=== PATIENT | male | born 1960 | race Caucasian/White ===

== ENCOUNTER 2019-06-01 10:37 | Emergency (ER) | payer BC, OTHER ==
[~2019-06-01] VITALS: Ht 175.3 cm; Wt 68.0 kg
[2019-06-01 10:38] VITALS: BP 167/70
--- NOTE | 2019-06-01 11:55 | Emergency Room Report ---
History of Present Illness General Chief Complaint: Vertigo Source: Patient Present Illness HPI Patient is a 58-year-old male who presented after increased vertigo sensation. He reports having difficulty walking. He said onset of symptoms was approximately 30 minutes prior to arrival. Sudden onset. Denies any prior history of vertigo in the past. Denies any ear fullness. Vertigo is worse with right lateral gaze. Had not been having any weakness to his extremities. Reports having near fall without any feeling of lightheadedness. Denies any chest discomfort or shortness of breath. He had some nausea and vomiting. COVID-19 risk:Travel to affect: No Has patient experienced julian: No Allergies: Coded Allergies: No Known Allergies (Unverified , 06/01/19) Patient History Reviewed Nursing Documentation: PMH: Agreed; PSxH: Agreed Review of Systems All Other Systems: negative except mentioned in HPI Physical Exam Vital Signs Date Time Temp Pulse Resp B/P (MAP) Pulse Ox O2 Delivery O2 Flow Rate FiO2 06/01/19 10:33 98.2 83 18 167/70 (102) 96 Room Air Sp02 EP Interpretation: reviewed, normal General Appearance: normal inspection, well appearing, no apparent distress, alert Head: atraumatic ENT: normal ENT inspection, hearing grossly normal, normal voice Neck: normal inspection, full range of motion, supple, no bony tend Respiratory: normal inspection, lungs clear, normal breath sounds, no respiratory distress, no retraction, no wheezing Cardiovascular #1: regular rate, rhythm, no edema Gastrointestinal: normal inspection, normal bowel sounds, non tender, soft, no guarding, no hernia Genitourinary: no CVA tenderness Musculoskeletal: normal inspection, back normal, normal range of motion Neurologic: alert, responsive, speech normal, normal inspection Psychiatric: normal inspection, judgement/insight normal, mood/affect normal Medical Decision Making Diagnostic Impression: Primary Impression: Vertigo Additional Impression: Hypokalemia ER Course Presented for vertigo. Differential diagnosis include was not limited to labyrinth-itis, benign positional vertigo, vertebrobasilar insufficiency, dehydration among others. Because of complexity of patient's case laboratory tests and imaging studies were ordered. Patient was noted to have CT of the head read by radiologist which showed no evidence of acute pathology. Patient has a nonfocal neurologic exam. He has normal [id number] and normal heel-to -chopra exams. Does not show any signs of significant abnormalities. Vertigo is worse with left side head movements. This appears to be somewhat positional. Patient was given meclizine as well as IV fluids. And IV antiemetics.Patient's troponin was noted to be 0 consistent with no cardiac issue. EKG interpreted by me showed normal sinus rhythm with a rate of [address] or T wave changes. Repeat EKG was unchanged. Patient appears to be stable for discharge.Patient for unknown reason began yelling at different members of the staff. Patient does not appear to be psychotic or in need of any psychiatric medications. There did not appear to be any abnormal behavior on the part of correspondence renew clerk which the patient began yelling at.He subsequently began yelling at the charge nurse Patient does not appear to have any evidence of CVA and appears to be stable for discharge. Patient was advised to follow-up with his primary care physician or neurology for recheck. Labs Test 06/01/19 11:00 White Blood Count 6.1 K/UL (4.8-10.8) Red Blood Count 4.92 M/UL (4.70-6.10) Hemoglobin 14.6 G/DL (14.2-18.0) Hematocrit 42.0 % (42.0-52.0) Mean Corpuscular Volume 85 FL (80-99) Mean Corpuscular Hemoglobin 29.7 PG (27.0-31.0) Mean Corpuscular Hemoglobin Concent 34.8 G/DL (32.0-36.0) Red Cell Distribution Width 11.2 % (11.6-14.8) Platelet Count 223 K/UL (150-450) Mean Platelet Volume 7.5 FL (6.5-10.1) Neutrophils (%) (Auto) 42.7 % (45.0-75.0) Lymphocytes (%) (Auto) 42.9 % (20.0-45.0) Monocytes (%) (Auto) 10.1 % (1.0-10.0) Eosinophils (%) (Auto) 3.4 % (0.0-3.0) Basophils (%) (Auto) 0.9 % (0.0-2.0) Sodium Level 143 MMOL/L (136-145) Potassium Level 3.1 MMOL/L (3.5-5.1) Chloride Level 105 MMOL/L (98-107) Carbon Dioxide Level 24 MMOL/L (21-32) Anion Gap 14 mmol/L (5-15) Blood Urea Nitrogen 17 mg/dL (7-18) Creatinine 1.0 MG/DL (0.55-1.30) Estimat Glomerular Filtration Rate > 60 mL/min (>60) Glucose Level 139 MG/DL (74-106) Calcium Level 9.0 MG/DL (8.5-10.1) Total Bilirubin 0.4 MG/DL (0.2-1.0) Aspartate Amino Transf (AST/SGOT) 29 U/L (15-37) Alanine Aminotransferase (ALT/SGPT) 42 U/L (12-78) Alkaline Phosphatase 80 U/L (46-116) Total Protein 7.1 G/DL (6.4-8.2) Albumin 3.7 G/DL (3.4-5.0) Globulin 3.4 g/dL Albumin/Globulin Ratio 1.1 (1.0-2.7) EKG Diagnostic Results Rate: normal Rhythm: NSR ST Segments: no acute changes Rhythm Strip Diag. Results EP Interpretation: yes Rhythm: NSR, no PVC's, no ectopy Last Vital Signs Date Time Temp Pulse Resp B/P (MAP) Pulse Ox O2 Delivery O2 Flow Rate FiO2 06/01/19 10:38 83 18 Room Air 06/01/19 10:38 98.2 167/70 96 Status: improved Disposition: HOME, SELF-CARE Condition: Stable Scripts Meclizine Hcl* (MECLIZINE*) 25 Mg Tablet 25 MG ORAL THREE TIMES A DAY, #14 TAB Prov: Rickie Miranda MD 06/01/19 Ondansetron Odt* (ZOFRAN ODT*) 4 Mg Tab.rapdis 4 MG BC EVERY 6 HOURS PRN for Nausea & Vomiting, #10 TAB 0 Refills Prov: Rickie Miranda MD 06/01/19 Rickie Miranda MD Jun 01, 2019 11:55
[2019-06-01] MEDS ORDERED: Meclizine 25mg tab ORAL ONE (12:00)
--- NOTE | 2019-06-01 12:58 | Diagnostic Imaging Report ---
EXAM: CT Head Without Intravenous Contrast CLINICAL HISTORY: DIZZY TECHNIQUE: Axial computed tomography images of the head/brain without intravenous contrast. CTDI is 53.4 mGy and DLP is 1072.2 mGy-cm. One or more of the following dose reduction techniques were used: automated exposure control, adjustment of the mA and/or kV according to patient size, use of iterative reconstruction technique. COMPARISON: CT head on 01/03/2010 FINDINGS: Brain: No acute infarct or hemorrhage. No extra-axial fluid collection. No mass effect or midline shift. Minimal calcifications in the basal ganglia. Ventricles and sulci: Normal. No ventriculomegaly or intraventricular hemorrhage. Bones: Normal. No bony lesion or fracture. Subcutaneous tissues: Normal. Sinuses: Normal. No air-fluid levels or mucosal thickening. Mastoid air cells: Normal. Orbits: Grossly unremarkable. IMPRESSION: No acute intracranial abnormality.
[2019-06-01 13:20] VITALS: BP 15/72
[2019-06-01 13:37] LABS: BASOPHILS % (AUTO) 0.9 % (0.0-2.0); EOSINOPHILS % (AUTO) 3.4 % (0.0-3.0); HEMOGLOBIN 14.6 G/DL (14.2-18.0); LYMPHOCYTES % (AUTO) 42.9 % (20.0-45.0); MEAN CORPUSCULAR VOLUME 85 FL (80-99); MONOCYTES % (AUTO) 10.1 % (1.0-10.0); NEUTROPHILS % (AUTO) 42.7 % (45.0-75.0); PLATELET COUNT 223 K/UL (150-450); RED BLOOD COUNT 4.92 M/UL (4.70-6.10); RED CELL DISTRIBUTION WIDTH 11.2 % (11.6-14.8); WHITE BLOOD COUNT 6.1 K/UL (4.8-10.8)
[2019-06-01 13:42] LABS: ANION GAP 14 mmol/L (5-15); BLOOD UREA NITROGEN 17 mg/dL (7-18); CARBON DIOXIDE 24 MMOL/L (21-32); CHLORIDE 105 MMOL/L (98-107); POTASSIUM 3.1 MMOL/L (3.5-5.1); SODIUM 143 MMOL/L (136-145)
[2019-06-01 13:47] LABS: ALANINE AMINOTRANSFERASE 42 U/L (12-78); ALBUMIN 3.7 G/DL (3.4-5.0); ALBUMIN/GLOBULIN RATIO 1.1 (1.0-2.7); ALKALINE PHOSPHATASE 80 U/L (46-116); ASPARTATE AMINO TRANSFERASE 29 U/L (15-37); BILIRUBIN,TOTAL 0.4 MG/DL (0.2-1.0)
[2019-06-01] MEDS ORDERED: MECLIZINE HCL25 MG ORAL (14:04)
[2019-06-01] MEDS ORDERED: ONDANSETRON ODT4 MG BC (14:04)
[2019-06-01 15:05] VITALS: BP 144/66
== END 2019-06-01 15:05 | disposition home or self-care (01) ==
LOC: EDBD 10:37 → EMR 11:00
DX: R42 Dizziness and giddiness (principal); E87.6 Hypokalemia
CPT/HCPCS: 36415; 70450; 80053; 84484; 85025; 93005; 96361; 96374; 99284; J2405; J7030; J8499